=== PATIENT | female | born 1935 | race Caucasian/White ===

== ENCOUNTER 2018-01-18 07:50 | Inpatient (IN) | payer MEDICARE, BC ==
[2018-01-18] MEDS ORDERED: ALBUTEROL SULFATE/IPRATROPIUM 3 ML NEBU IH ONE ×2 (08:27→08:28)
[2018-01-18] MEDS ORDERED: METHYLPREDNISOLONE SOD SUCC/PF 125 MG/2 ML VIAL IV ONE (08:29)
[2018-01-18] MEDS ORDERED: METHYLPREDNISOLONE SOD SUCC/PF 125 MG/2 ML VIAL ONE (08:39)
[2018-01-18 08:49] LABS: Hematocrit 24.2 % (37.0-47.0); Hemoglobin 8.5 gm/dL (12.5-16.0); Mean Cell Volume 85.5 fl (78-100); Mean Corpuscular Hgb Conc 35.1 g/dl (32-36); Mean Platelet Volume 8.5 fl (6.0-9.5); Neutrophil # 6.7 K/mm3 (1.3-6.0); Platelet Count 185 K/mm3 (150-450); Red Blood Count 2.83 M/mm3 (4.2-5.4); Red Cell Distribution Width 14.3 % (11.5-14.0); White Blood Count 7.8 K/mm3 (4.0-10.5)
[2018-01-18 09:10] LABS: Troponin I Less than 0.017 ng/ml (0.00-0.10)
[2018-01-18 09:12] LABS: ALT 17 U/L (19-67); AST 21 U/L (0-48); Alkaline Phosphatase * 54 U/L (50-170); Anion Gap 17.1 mmol/L (6.8-13.8); BNP * 6548 pg/mL (5-550); BUN/Creatinine Ratio 12.1 (9.0-21.6); Bilirubin, Total 0.4 mg/dL (0.0-1.1); Blood Urea Nitrogen 49 mg/dL (3-23); Ca. Corrected For Albumin 9.4 mg/dL (8.4-10.2); Calcium * 8.9 mg/dL (7.9-10.9); Carbon Dioxide 25.5 mmol/L (24-32.6); Chloride 84 mmol/L (97-106); Glucose * 175 mg/dL (70-110); Potassium 4.6 mmol/L (3.4-4.6); Sodium 122 mmol/L (132-142); Total Protein 6.9 gm/dL (6.2-8.2)
--- NOTE | 2018-01-18 09:16 | ERNOTE ---
Date of Service: 01/18/18 Time Seen by Provider: 01/18/18 08:26 Stated Complaint: PANIC ATTACK Presenting Symptoms:: cough, other - wheezing Immunizations: IMMUNIZATION HX Immunizations Up to Date Yes History of Influenza Vaccine Yes Hx Pneumococcal Vaccination Yes Allergies/Adverse Reactions: Allergies carvedilol [From Coreg] Allergy (Intermediate, Verified 08/01/13 09:54) wheezing codeine [Codeine] Allergy (Intermediate, Verified 08/01/13 09:54) SOB oxycodone HCl [From Percocet] Allergy (Intermediate, Verified 08/01/13 09:54) severe nausea/vomiting, heart palpitations GARTH Inhibitors [Garth Inhibitors] Allergy (Mild, Verified 08/01/13 09:54) cough Iodinated Contrast- Oral and IV Dye [Iodinated Contrast Media - IV Dye] Allergy (Verified 12/07/15 11:04) morphine Adverse Reaction (Severe, Verified 08/01/13 09:54) Shortness of Breath also has nausea metformin Adverse Reaction (Mild, Verified 08/01/13 09:54) abdominal pain and cramping Home Medications: HOME MEDICATIONS Simvastatin 20 mg PO HS 09/14/12 [Last Taken Unknown] Verapamil HCl [Verapamil ER] 240 mg PO BID 09/14/12 [Last Taken Unknown] Aspirin [Aspirin Enteric Coated] 81 mg PO DAILY 05/05/13 [Last Taken Unknown] Calcium Carbonate [Calcium] 667 mg PO DAILY 05/05/13 [Last Taken Unknown] Cholecalciferol (Vitamin D3) [Vitamin D] 1,000 unit PO DAILY 05/05/13 [Last Taken Unknown] Insulin Glargine,Hum.rec.anlog [Lantus] 40 units SC DAILY 05/05/13 [Last Taken Unknown] Acetaminophen [Tylenol] 650 mg PO Q4H PRN 07/27/13 [Last Taken Unknown] Cyanocobalamin [Vitamin B-12] 1,000 mcg PO DAILY 07/27/13 [Last Taken Unknown] Famotidine [Pepcid AC] 20 mg PO HS 01/18/18 [Last Taken Unknown] Ferrous Sulfate [Iron] 325 mg PO TID 01/18/18 [Last Taken Unknown] Isosorbide Mononitrate [Imdur] 30 mg PO DAILY 01/18/18 [Last Taken Unknown] Levothyroxine Sodium [Synthroid] 175 mcg PO DAILY 01/18/18 [Last Taken Unknown] Meclizine HCl [Bonine] 25 mg PO DAILY 01/18/18 [Last Taken Unknown] Promethazine HCl 12.5 mg PO DAILY 01/18/18 [Last Taken Unknown] Sodium Bicarbonate 650 mg PO DAILY 01/18/18 [Last Taken Unknown] - History of Present Ilness Narrative: patient has had cough and congestion for one week albuteral not heling Timing: constant, getting worse Severity: moderate Frequency/Possible Cause: Reports: frequent episodes Modifying Factors - Improves: Reports: rest Review of Systems - Review of Systems Constitutional: Present: See HPI EYE: Present: no symptoms reported ENT: Present: no symptoms reported Respiratory: Present: See HPI, shortness of breath, cough Cardiology: Present: See HPI, edema Gastrointestinal/Abdominal: Present: no symptoms reported Genitourinary: Present: no symptoms reported Musculoskeletal: Present: no symptoms reported Skin: Present: no symptoms reported Neurological: Present: no symptoms reported Endocrine: Present: no symptoms reported Hematologic/Lymphatic: Present: no symptoms reported Psych: Present: no symptoms reported All Other Systems: All systems neg except as marked - Narrative Narrative: patient has been sob one for one week - Patient's Past Medical History Patient History - Medical: Anxiety, Depression, Renal Disease, Renal Failure Patient History - Cardiac/Respiratory: COPD Patient History - Cancer: No Hx of Cancer Patient History - Surgical Procedures: No surgical history Patient History - Other: None LMP (females 10-50): Menopausal - Family History Family History:: no untoward family reactions to anesthesia, no familial bleeding tendencies, no family history of clotting disorders, no family history of premature - Social History Living Situations: home Abuse History: No History of abuse Psych History: Hx of Anxiety, Hx of Depression Does anyone smoke in the home?: No Smoking Status: Never smoker Have you smoked in the past 12 months: No Do you dip or chew tobacco: No Alcohol Use: sober Drug Use: none - Immunizations Immunizations Up to Date: Yes Hx Pneumococcal Vaccination: Yes History of Influenza Vaccine: Yes Physical Exam - Physical Exam General Appearance: Present: moderate distress Head Exam: Present: normal inspection, no evidence of injury Eye Exam: Normal inspection: bilateral, PERRL: bilateral, EOMI: bilateral Ears, Nose, Throat: Present: normal ENT inspection Neck: Present: normal inspection, nontender Respiratory: Present: respiratory distress, decreased breath sounds, expiration (prolonged), crackles, rales, rhonchi Cardiovascular/Chest: Present: regular rate, rhythm, no murmur, normal peripheral pulses Peripheral Pulses: N=norm/S=strong/W=weak/B=bound/A=absent: Carotid (R): Normal , Carotid (L): Normal, Radial (R): Normal, Radial (L): Normal, Femoral (R): Normal, Femoral (L): Normal, Dorsalis-pedis (R): Normal, Dorsalis-pedis (L): Normal Gastrointestinal/Abdominal: Present: normal bowel sounds, nontender, nondistended, soft, no organomegaly Back Exam: Present: normal inspection, normal range of motion, no CVA tenderness , no vertebral tenderness Extremity Exam: Present: normal inspection, non-tender, normal range of motion, no edema Neurological Exam: Present: alert, oriented, normal mood/affect, no motor/ sensory deficits Skin Exam: Present: normal color, warm/dry Lymphatic Exam: Present: no adenopathy ED Progress - Date and Time Seen: Date and Time: 01/18/18 10:41 unchanged, case discussed with dr aniket bernstein, to be admitted to observation, pulmonary edema - Results and Orders Patient's Lab Results:: I have reviewed the patient's lab results. - Vital Signs Patient's Vital Signs:: I have reviewed the patient's vital signs. Vital Signs: Vital Signs 01/18/18 01/18/18 01/18/18 08:04 08:09 08:30 Temperature 36.6 C 36.6 C Pulse Rate 92 93 90 Respiratory 22 H 24 H 24 H Rate Blood Pressure 182/68 182/68 O2 Sat by Pulse 93 95 94 Oximetry 01/18/18 08:39 Temperature Pulse Rate 92 Respiratory 26 H Rate Blood Pressure O2 Sat by Pulse 94 Oximetry - EKG EKG: NSR EKG read: Interp. by me - Progress/Reassessment Chief Complaint: Upper Respiratory Symptoms Progress:: Unchanged - Transfer of Care Expected Disposition: Admit Plan - Plan Plan: to admit to observation Departure Clinical Impression: Pulmonary edema - Departure Disposition: Short Term Hospital Inpatient Condition: Serious Referrals: Jordan Orosco MD [Primary Care Provider] -
[2018-01-18] MEDS ORDERED: FUROSEMIDE 10 MG/ML VIAL IV ONE ×2 (10:30→13:39)
[2018-01-18] MEDS ORDERED: FUROSEMIDE 10 MG/ML VIAL ONE (10:33)
--- NOTE | 2018-01-18 12:54 | HP ---
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 2 weeks prior to admission patient started having some cough and was seen by ear nose and throat that she was also having right ear discharge she was treated for acute sinusitis and an ear infection with heavy antibiotics as per son. The patient continued to be short of breath and noticed that her nebulizer treatment has not been helping her and so she was brought to the emergency room. Her BNP was elevated. Her white blood cell count was normal although she had she has a left shift. Her Na was 122. Her chest x-ray showed interstitial edema and possible pneumonia as well. She was then admitted for further treatment. - Patient's Past Medical History Patient History - Medical: Anxiety, Depression, Renal Disease, Renal Failure Patient History - Cardiac/Respiratory: COPD Patient History - Cancer: No Hx of Cancer Patient History - Surgical Procedures: Cholecystectomy Patient History - Other: None LMP (females 10-50): Menopausal - Family History Family History:: no untoward family reactions to anesthesia, no familial bleeding tendencies, no family history of clotting disorders, no family history of premature - Family History Father Family History - Medical: , No pertinent hx Family History - Cardiac/Respiratory: No pertinent hx Family History - Cancer: Lung Mother Family History - Medical: Family History - Cardiac/Respiratory: No pertinent hx Family History - Cancer: Cervical - Social History Living Situations: home Abuse History: No History of abuse Psych History: Hx of Anxiety, Hx of Depression Does anyone smoke in the home?: No Smoking Status: Never smoker Have you smoked in the past 12 months: No Do you dip or chew tobacco: No Alcohol Use: none Drug Use: none - Immunizations Immunizations Up to Date: Yes Hx Pneumococcal Vaccination: Yes History of Influenza Vaccine: Yes Review Of Systems (GEN) - Review of Systems Generalized/Overall Review: Present: Weakness. Absent: Chills, Fever Respiratory: Present: Cough, Shortness of Breath, Orthopnea Cardiac: Present: Edema. Absent: Chest Pain, Palpitations Abdominal: Absent: Nausea, Vomiting Genitourinary: Absent: Urgency, Frequency Musculoskeletal: Present: Joint Pain Immunizations: IMMUNIZATION HX Immunizations Up to Date Yes History of Influenza Vaccine Yes Hx Pneumococcal Vaccination Yes Allergies/Adverse Reactions: Allergies Allergy/AdvReac Type Severity Reaction Status Date / Time carvedilol [From Coreg] Allergy Intermediate wheezing Verified 01/18/18 14:51 codeine [Codeine] Allergy Intermediate SOB Verified 01/18/18 14:51 oxycodone HCl [From Percocet] Allergy Intermediate severe Verified 01/18/18 14: 51 nausea/vomiting, heart palpitations GARTH Inhibitors Allergy Mild cough Verified 01/18/18 14:51 [Garth Inhibitors] Iodinated Contrast- Oral and Allergy Verified 01/18/18 14:51 IV Dye [Iodinated Contrast Media - IV Dye] morphine AdvReac Severe Shortness Verified 01/18/18 14:51 of Breath metformin AdvReac Mild abdominal Verified 01/18/18 14:51 pain and cramping Home Medications: HOME MEDICATIONS Simvastatin 20 mg PO HS 09/14/12 [Last Taken Unknown] Verapamil HCl [Verapamil ER] 240 mg PO DAILY 09/14/12 [Last Taken Unknown] Aspirin [Aspirin Enteric Coated] 81 mg PO DAILY 05/05/13 [Last Taken Unknown] Cholecalciferol (Vitamin D3) [Vitamin D] 3,000 unit PO DAILY 05/05/13 [Last Taken Unknown] Acetaminophen [Tylenol] 650 mg PO Q4H PRN 07/27/13 [Last Taken Unknown] Cyanocobalamin [Vitamin B-12] 1,000 mcg PO DAILY 07/27/13 [Last Taken Unknown] Albuterol Sulfate [Proair Hfa] 1 - 2 puff IH Q4H PRN 01/18/18 [Last Taken Unknown] Calcium Acetate [Phoslo] 667 mg PO TID 01/18/18 [Last Taken Unknown] Famotidine [Pepcid AC] 20 mg PO HS 01/18/18 [Last Taken Unknown] Ferrous Sulfate [Iron] 325 mg PO TID 01/18/18 [Last Taken Unknown] Insulin Glargine,Hum.rec.anlog [Lantus Solostar] 40 unit SQ DAILY 01/18/18 [ Last Taken Unknown] Isosorbide Mononitrate [Imdur] 30 mg PO DAILY 01/18/18 [Last Taken Unknown] Levothyroxine Sodium [Synthroid] 175 mcg PO DAILY 01/18/18 [Last Taken Unknown] Meclizine HCl [Bonine] 25 mg PO TID PRN 01/18/18 [Last Taken Unknown] Promethazine HCl 12.5 mg PO Q4H PRN 01/18/18 [Last Taken Unknown] Sodium Bicarbonate 650 mg PO DAILY 01/18/18 [Last Taken Unknown] Verapamil HCl [Verapamil ER] 120 mg PO BID 01/18/18 [Last Taken Unknown] Exam - Exam Vital Signs: Vital Signs - Last Taken Temp 36.6 C 01/18/18 11:38 Pulse 94 01/18/18 11:38 Resp 28 H 01/18/18 11:38 BP 200/72 01/18/18 11:38 Pulse Ox 94 01/18/18 11:38 Constitutional: Present: Alert, Oriented x3, Cooperative ENT Exam: Present: hearing grossly normal Eye Exam: bilateral eye: normal inspection, PERRL, EOMI Neck: Present: supple Respiratory: Present: decreased breath sounds, rales, wheezing Cardiovascular/Chest: Present: regular rate, rhythm, JVD Abdomen: Present: Normal bowel sounds, soft, nontender, nondistended Extremity: Present: no calf tenderness, lower extremity edema Diagnostic Studies: Laboratory Results WBC 7.8 K/mm3 (4.0-10.5) 01/18/18 08:40 RBC 2.83 M/mm3 (4.2-5.4) L 01/18/18 08:40 Hgb 8.5 gm/dL (12.5-16.0) L 01/18/18 08:40 Hct 24.2 % (37.0-47.0) L 01/18/18 08:40 MCV 85.5 fl (78-100) 01/18/18 08:40 MCH 30.0 pg (27-31) 01/18/18 08:40 MCHC 35.1 g/dl (32-36) 01/18/18 08:40 RDW 14.3 % (11.5-14.0) H 01/18/18 08:40 Plt Count 185 K/mm3 (150-450) 01/18/18 08:40 MPV 8.5 fl (6.0-9.5) 01/18/18 08:40 Immature Gran % (Auto) 0.50 % (0.001-0.429) H 01/18/18 08:40 Immature Gran # (Auto) 0.04 K/mm3 (0.000-0.0310) H 01/18/18 08:40 Neutrophils % 86.0 % (42-75.0) H 01/18/18 08:40 Lymphocytes % 6.0 % (20-51) L 01/18/18 08:40 Monocytes % 6.9 % (0.0-9) 01/18/18 08:40 Eosinophils % 0.5 % (0.0-3.0) 01/18/18 08:40 Basophils % 0.1 % (0.0-1.0) 01/18/18 08:40 Nucleated RBC % 0.0 k/mm3 (0-1) 01/18/18 08:40 Neutrophils # 6.7 K/mm3 (1.3-6.0) H 01/18/18 08:40 Lymphocytes # 0.47 k/mm3 (1.5-3.5) L 01/18/18 08:40 Monocytes # 0.5 k/mm3 (0.0-1.0) 01/18/18 08:40 Eosinophils # 0.0 k/mm3 (0.0-0.7) 01/18/18 08:40 Absolute Basophils 0.0 k/mm3 (0.0-0.1) 01/18/18 08:40 pCO2 30.4 mmHg (32.0-45.0) L 01/18/18 08:55 pO2 68.0 mmHg (83.0-108.0) L 01/18/18 08:55 HCO3 20.1 mmol/L (21.0-28.0) L 01/18/18 08:55 Total CO2 21.0 mmol/L (19.0-24.0) 01/18/18 08:55 Base Excess -3.5 mmol/L (-2.0-3.0) L 01/18/18 08:55 ABG pH 7.44 (7.35-7.45) 03 08:55 ABG O2 Sat (Measured) 94.4 % (94.0-98.0) 01/18/18 08:55 Sodium 122 mmol/L (132-142) L 01/18/18 08:40 Plasma Sodium 123 mmol/L (130-142) L 01/18/18 08:40 Potassium 4.6 mmol/L (3.4-4.6) D 01/18/18 08:40 Chloride 84 mmol/L (97-106) L 01/18/18 08:40 Carbon Dioxide 25.5 mmol/L (24-32.6) 01/18/18 08:40 Anion Gap 17.1 mmol/L (6.8-13.8) H 01/18/18 08:40 BUN 49 mg/dL (3-23) H 01/18/18 08:40 Creatinine 4.04 mg/dL (0.4-1.4) H 01/18/18 08:40 Est GFR (Non-Af Amer) 11 mL/min (60-130) L 01/18/18 08:40 BUN/Creatinine Ratio 12.1 (9.0-21.6) 01/18/18 08:40 Random Glucose 175 mg/dL (70-110) H 01/18/18 08:40 Lactic Acid, Venous 1.1 mmol/L (0.4-1.9) 01/18/18 08:40 Calcium 8.9 mg/dL (7.9-10.9) 01/18/18 08:40 Calcium Adj for Albumin 9.4 mg/dL (8.4-10.2) 01/18/18 08:40 Total Bilirubin 0.4 mg/dL (0.0-1.1) 01/18/18 08:40 AST 21 U/L (0-48) 01/18/18 08:40 ALT 17 U/L (19-67) L 01/18/18 08:40 Alkaline Phosphatase 54 U/L (50-170) 01/18/18 08:40 Troponin I Less than 0.017 ng/ml (0.00-0.10) 01/18/18 08:40 B-Natriuretic Peptide 6548 pg/mL (5-550) H 01/18/18 08:40 Total Protein 6.9 gm/dL (6.2-8.2) 01/18/18 08:40 Albumin 3.0 gm/dl (3.4-5.0) L 01/18/18 08:40 Assessment/Plan - Assessment/Plan (1) CHF (congestive heart failure) Assessment: likely combined systolic/diastolic. will get an Echo. will continue with diuresis. if does not improve , will need transfer for dialysis. Problem: Acute Qualifiers: Congestive heart failure type: combined Congestive heart failure chronicity : acute on chronic Qualified Code(s): I50.43 - Acute on chronic combined systolic (congestive) and diastolic (congestive) heart failure (2) Hyponatremia Assessment: likely due to hypervolemic hypotonic hyponatremia due to CHF Problem: Acute (3) Dyspnea Problem: Acute (4) Acute asthmatic bronchitis Assessment: will start her on Iv antibiotics, breathing treatment and IV solumedrol. Problem: Acute (5) CRF (chronic renal failure) Assessment: Stage V. discussed case with Nephrology- give her 120-240 mg IV Lasix BID. Problem: Chronic Qualifiers: Chronic kidney disease stage: stage 5 Qualified Code(s): N18.5 - Chronic kidney disease, stage 5 (6) Hypertension Problem: Acute (7) Diabetes mellitus type 2 in obese Problem: Acute
[2018-01-18] MEDS ORDERED: AZITHROMYCIN 250 MG TABLET PO ONE (12:55)
[2018-01-18] MEDS ORDERED: ACETAMINOPHEN 325 MG TABLET PO PRN (12:57)
[2018-01-18] MEDS ORDERED: METHYLPREDNISOLONE SOD SUCC/PF 40 MG/ML VIAL IV SCH (13:00)
[2018-01-18] MEDS: METHYLPREDNISOLONE SOD SUCC 40 MG in WATER FOR INJ.,BACTERIOSTATIC 0 ML IV SCH ×2 (13:56→20:21)
[2018-01-18] MEDS: FERROUS SULFATE 325 MG TABLET PO SCH ×2 (13:56→17:08)
[2018-01-18] MEDS ORDERED: cefTRIAXone SODIUM 1,000 MG in DEXTROSE 5 % IN WATER 50 ML IV SCH ×2 (14:00)
[2018-01-18] MEDS: CALCIUM ACETATE 667 MG CAPSULE PO SCH ×2 (14:17→17:07)
[2018-01-18] MEDS ORDERED: FUROSEMIDE 10 MG/ML VIAL IV SCH (16:00)
[2018-01-18] MEDS: FUROSEMIDE 100 MG, FUROSEMIDE 20 MG IV SCH ×4 (16:06→20:22)
[2018-01-18] MEDS: HEPARIN SODIUM,PORCINE 5,000 UNITS/ML VIAL SC SCH (17:07)
[2018-01-18 17:44] LABS: Urine Appearance Slightly Cloudy (CLEAR); Urine Bilirubin Negative (NEGATIVE); Urine Blood 250 /ul (NEGATIVE); Urine Color Pale Yellow; Urine Ketone Negative (NEGATIVE); Urine Specific Gravity 1.015 SP.GR. (1.005-1.010); Urine pH 6.5 pH (5.0-7.0)
[2018-01-18 17:45] LABS: Urine Nitrite Negative (NEGATIVE); Urine Protein >=300 mg/dL (NEGATIVE); Urine Urobilinogen Normal (NORMAL)
[2018-01-18 17:52] LABS: Urine Amorphous Sediment Few - 1+ (NONE-FEW); Urine Bacteria TRACE; Urine WBC 0-5 /hpf (0-5)
[2018-01-18] MEDS: VERAPAMIL HCL 240 MG TABLET.SA PO SCH (20:22)
[2018-01-18] MEDS ORDERED: FAMOTIDINE 20 MG TABLET PO SCH (21:00)
[2018-01-18] MEDS ORDERED: INSULIN LISPRO 100 UNITS/ML VIAL SC ONE (21:45)
[2018-01-18] MEDS: LORazepam 0.5 MG TABLET PO PRN (21:59)
[2018-01-18] MEDS: ALBUTEROL SULFATE 200 PUFF INHALER IH PRN (22:00)
[2018-01-18] MEDS ORDERED: POTASSIUM CHLORIDE 10 MEQ TABLET.SA PO SCH (23:45)
[2018-01-19] MEDS: METHYLPREDNISOLONE SOD SUCC 40 MG in WATER FOR INJ.,BACTERIOSTATIC 0 ML IV SCH ×2 (02:20→07:24)
[2018-01-19] MEDS: HEPARIN SODIUM,PORCINE 5,000 UNITS/ML VIAL SC SCH (04:05)
[2018-01-19] MEDS: ALBUTEROL SULFATE 200 PUFF INHALER IH PRN ×2 (04:06→09:55)
[2018-01-19] MEDS: LORazepam 0.5 MG TABLET PO PRN (04:06)
[2018-01-19 05:58] LABS: Mean Cell Volume 83.9 fl (78-100); Mean Corpuscular Hemoglobin 29.3 pg (27-31); Mean Corpuscular Hgb Conc 34.9 g/dl (32-36); Mean Platelet Volume 9.5 fl (6.0-9.5); Neutrophil # 2.9 K/mm3 (1.3-6.0); Neutrophil % 86.6 % (42-75.0); Platelet Count 185 K/mm3 (150-450); Red Blood Count 2.73 M/mm3 (4.2-5.4); Red Cell Distribution Width 13.9 % (11.5-14.0); White Blood Count 3.4 K/mm3 (4.0-10.5)
[2018-01-19 06:08] LABS: Hematocrit 22.9 % (37.0-47.0)
[2018-01-19 06:19] LABS: Anion Gap 17.2 mmol/L (6.8-13.8); BUN/Creatinine Ratio 14.3 (9.0-21.6); Calcium * 8.5 mg/dL (7.9-10.9); Carbon Dioxide 22.3 mmol/L (24-32.6); Estimated Creat Clear 7.5; Potassium 5.5 mmol/L (3.4-4.6)
--- NOTE | 2018-01-19 08:39 | PN ---
Progess Note - Interim Date: 01/19/18 Time: 08:38 Narrative: 01/19/18 08:38 Patient is feeling better in terms of her SOB although she is visibly SOB as she is not able to finish her sentences without stopping every so foten. her Na is down to 116 and Cr is up to 4.3, k [place] 5.5, [place] [address] [place] 6000 . She is AAO x3, no tremors/fasciculations, crampings/N/V- asymptomatic. Will fluid restrict her ot 750 ml/hour. Will give her 3% NaCl and monitor her Na q 2 hours. Will get in touch with Dr. Becerril for possible transfer to [facility] for dialysis. 01/19/18 08:59 I was able to get in touch with her orthophotography technician and agrees with HD. If we are transferring her to [facility] for dialysis, will hold off her hypertonic saline per nephrology if she is asymptomatic..
--- NOTE | 2018-01-19 08:42 | PN ---
Progess Note - Interim Date: 01/19/18 Time: 08:36 Narrative: 01/19/18 08:36 Interim progress note on Tangela Cowart. I was called twice this morning early with panic values 1 with a sodium of 116 and 1 with a hemoglobin drop to 8 g. She is a patient of . I have spoken with him this morning and gave him game technician report on her condition. I went to see her earlier this morning and found her sitting up in a chair wearing oxygen but comfortable. She says she feels quite a bit better than she did. She is a stage V chronic hemodialysis patient with a creatinine of 10. She was pulling a large amounts of protein in her urine. She has been receiving 120 mg of IV Lasix twice a day and has diuresed without. Unfortunately she is also dropped her sodium considerably. Venous and doesn't seem to be affecting her mental status point. There has been no reported seizures. I have recommended hypertonic saline solution to be administered. Dr. Orosco will manage that. Elliott Ivan D.O.
[2018-01-19] MEDS ORDERED: SODIUM CHLORIDE 3 % 500 ML IV SCH (08:45)
[2018-01-19] MEDS ORDERED: CHOLECALCIFEROL 1,000 UNIT CAPSULE PO SCH (09:00)
[2018-01-19] MEDS ORDERED: LEVOTHYROXINE SODIUM 175 MCG TABLET PO SCH (09:00)
[2018-01-19] MEDS ORDERED: SODIUM BICARBONATE 650 MG TABLET PO SCH (09:00)
[2018-01-19] MEDS ORDERED: ASPIRIN 81 MG TABLET.DR PO SCH (09:00)
[2018-01-19] MEDS ORDERED: POTASSIUM CHLORIDE 20 MEQ TABLET.SA PO SCH (09:00)
[2018-01-19] MEDS ORDERED: ISOSORBIDE MONONITRATE 30 MG TAB.SR.24H PO SCH (09:00)
[2018-01-19] MEDS ORDERED: INSULIN GLARGINE,HUM.REC.ANLOG 100 UNITS/ML VIAL SC SCH (09:00)
[2018-01-19] MEDS ORDERED: CYANOCOBALAMIN 1,000 MCG TABLET PO SCH (09:00)
--- NOTE | 2018-01-19 09:07 | DS ---
Transfer Discharge Summary - Diagnosis(s)/Problems (1) CHF (congestive heart failure) Narrative: acute exacerbation of CHF , diastolic Problem: Acute (2) Hyponatremia Narrative: likely hypervolemic, hypotonic hyponatremia due to CHF Problem: Acute (3) Dyspnea Narrative: due to CHF and Acute bronchitis Problem: Acute (4) Acute asthmatic bronchitis Problem: Acute (5) CRF (chronic renal failure) Narrative: Stage V Problem: Chronic (6) Hypertension Problem: Acute (7) Diabetes mellitus type 2 in obese Problem: Acute - Course Description of Stay: Tangela Cowart, is 82-year-old white female with past medical history of COPD, 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 2 weeks prior to admission patient started having some cough, wheezing and was seen by ENT as she was also having right ear discharge and she was treated for acute sinusitis and an ear infection with heavy antibiotics as per son. The patient continued to be short of breath, wheezy and noticed that her nebulizer treatment has not been helping her and so she was brought to the emergency room. Her BNP was elevated. Her white blood cell count was normal although she had a left shift. Her Na was 122. Her chest x- ray showed interstitial edema and nodular density possible pneumonia vs malignancy. She was started on IV solumedrol, IV rocephin and Azithromycin, with breathing treatments for her Acute asthmatic bronchitis. It was felt that her hyponatremia was due to hypotinic , hypervolemic hyponatremia and her registration officer agreed. She was started on IV lasix 120 mg IV BID, fluid restriction. She put out 1 L overnight but her Na is down to 116, Bun/Cr up to 62/4.3. She is clinically asymptomatic of her hyponatremia but she is still visibly SOB. Discussed with Dr. Becerril and he agrees with dialysis for the patient. We will transfer patient to [facility] for HD and availability of Nephrology and cardiology especialties. I was able to talk to dr. Kenny, hospitaist , in [facility] and he is accepting the transfer. Procedures Performed: none - Results and Findings Results and Findings: Laboratory Results - last 24 hr 01/18/18 01/19/18 01/19/18 17:15 05:37 05:37 WBC 3.4 L D RBC 2.73 L Hgb 8.0 L Hct 22.9 L* MCV 83.9 MCH 29.3 MCHC 34.9 RDW 13.9 Plt Count 185 MPV 9.5 Immature Gran % (Auto) 1.50 H Immature Gran # (Auto) 0.05 H Neutrophils % 86.6 H Lymphocytes % 9.2 L Monocytes % 2.4 Eosinophils % 0.3 Basophils % 0.0 Nucleated RBC % 0.0 Neutrophils # 2.9 Lymphocytes # 0.31 L Monocytes # 0.1 Eosinophils # 0.0 Absolute Basophils 0.0 Sodium 116 L* Plasma Sodium 119 L* Potassium 5.5 H Chloride 82 L Carbon Dioxide 22.3 L Anion Gap 17.2 H BUN 62 H Creatinine 4.35 H Est GFR (Non-Af Amer) 10 L BUN/Creatinine Ratio 14.3 Random Glucose 273 H D Calcium 8.5 B-Natriuretic Peptide 11797 H Urine Color Pale yellow Urine Appearance Slightly cloudy Urine pH 6.5 Ur Specific [place] 1.015 Urine Protein >=300 H Urine Glucose (UA) 250 H Urine Ketones Negative Urine Blood 250 H Urine Nitrate Negative Urine Bilirubin Negative Prot Sulfosalicylic Acd 2+ H Urine Urobilinogen Normal Ur Leukocyte Esterase Negative Urine RBC 5-10 H Urine WBC 0-5 Ur Epithelial Cells 0-5 Amorphous Sediment Few - 1+ Urine Bacteria Trace - Medications Medications: Active Medications Albuterol Sulfate (Ventolin Hfa) 1 - 2 puff IH Q4H PRN PRN Reason: shortness of breath Stop: 02/17/18 21:35 Last Admin: 01/19/18 04:06 Dose: 2 puff Calcium Acetate (Phoslo) 667 mg PO TID [facility] Stop: 02/17/18 14:01 Last Admin: 01/18/18 17:07 Dose: 667 mg Famotidine (Pepcid) 20 mg PO HS [place] Stop: 02/17/18 21:01 Last Admin: 01/18/18 20:23 Dose: 20 mg Ferrous Sulfate (Ferrous Sulfate) 325 mg PO TID [place] Stop: 02/17/18 13:01 Last Admin: 01/18/18 17:08 Dose: 325 mg Furosemide 100 mg/ Furosemide (20 mg) 120 mg IV BID [place] Stop: 02/17/18 16:01 Last Admin: 01/18/18 20:22 Dose: 120 mg Heparin Sodium (Porcine) (Heparin Sodium) 5,000 units SC Q12H [facility] Stop: 02/17/18 17:01 Last Admin: 01/19/18 04:05 Dose: 5,000 units Methylprednisolone Sodium (Succinate 40 mg/ Sterile Water) 0.32 mls @ 19.2 mls/ hr IV Q6H [place] Stop: 02/17/18 14:01 Last Admin: 01/19/18 07:24 Dose: 19.2 mls/hr Ceftriaxone Sodium 1,000 mg/ (Dextrose/Water) 50 mls @ 100 mls/hr IV Q24H [place] PRN Reason: Protocol Stop: 02/17/18 13:01 Last Infusion: 01/18/18 14:52 Dose: Infused Lorazepam (Ativan) 0.5 mg PO Q6H PRN PRN Reason: Anxiety Stop: 02/17/18 21:37 Last Admin: 01/19/18 04:06 Dose: 0.5 mg Verapamil HCl (Calan Sr) 240 mg PO BID [facility] Stop: 02/17/18 21:01 Last Admin: 01/18/18 20:22 Dose: 240 mg Discontinued Medications Albuterol/Ipratropium (Duoneb 2.5-0.5mg/3ml Soln) 3 ml IH ONCE ONE Stop: 01/18/18 08:28 Last Admin: 01/18/18 08:30 Dose: 3 ml Azithromycin (Zithromax) 500 mg PO ONCE ONE PRN Reason: Protocol Stop: 01/18/18 12:56 Last Admin: 01/18/18 13:56 Dose: 500 mg Furosemide (Lasix) 60 mg IV ONCE ONE Stop: 01/18/18 10:31 Last Admin: 01/18/18 11:02 Dose: 60 mg Furosemide (Lasix) 60 mg IV ONCE ONE Stop: 01/18/18 13:40 Last Admin: 01/18/18 14:06 Dose: 60 mg Ceftriaxone Sodium 1,000 mg/ (Dextrose/Water) 100 mls @ 200 mls/hr IV Q24H [place] PRN Reason: Protocol Stop: 02/17/18 13:01 Last Admin: 01/18/18 14:12 Dose: Not Given Insulin Human Lispro (Humalog) 10 units SC ONCE ONE Stop: 01/18/18 21:46 Last Admin: 01/18/18 22:02 Dose: 10 units Methylprednisolone Sodium Succinate (Solu-Medrol (Pf)) 125 mg IV ONCE ONE Stop: 01/18/18 08:30 Last Admin: 01/18/18 08:40 Dose: 125 mg Potassium Chloride (Klor-Con 10) 20 meq PO BIDWM [facility] Stop: 02/17/18 23:46 Last Admin: 01/19/18 00:08 Dose: 20 meq - Disposition Disposition: Short Term Hospital Inpatient Condition: Serious
[2018-01-19] MEDS: FUROSEMIDE 100 MG, FUROSEMIDE 20 MG IV SCH ×2 (09:54)
[2018-01-19] MEDS: FERROUS SULFATE 325 MG TABLET PO SCH (10:02)
[2018-01-19] MEDS: CALCIUM ACETATE 667 MG CAPSULE PO SCH (10:03)
[2018-01-19] MEDS: VERAPAMIL HCL 240 MG TABLET.SA PO SCH (10:05)
[2018-01-19] MEDS: INSULIN LISPRO 100 UNITS/ML VIAL SC SCH ×2 (10:09→12:37)
[2018-01-19 11:04] VITALS: BP 181/75
--- NOTE | 2018-01-21 09:05 | ECHO ---
This report is available in the EMR
== END 2018-01-19 12:30 | disposition short-term general hospital (02) | DRG 292 ==
LOC: ER 07:50 → MS 10:41 → OBSVTOIN 13:04
PROVIDERS: ADMIT Internal Medicine; ATTEND Internal Medicine
PROC: 4A033R1 Measurement of Arterial Saturation, Peripheral, Percutaneous Approach (ICD-10-PCS; principal; 2018-01-18)
PROC: B246ZZZ Ultrasonography of Right and Left Heart (ICD-10-PCS; 2018-01-19)
DX: E87.1 Hypo-osmolality and hyponatremia; J45.901 Unspecified asthma with (acute) exacerbation; N18.5 Chronic kidney disease, stage 5; R06.00 Dyspnea, unspecified; Z79.82 Long term (current) use of aspirin; I13.2 Hypertensive heart and chronic kidney disease with heart failure and with stage 5 chronic kidney disease, or end stage renal disease; Z88.8 Allergy status to other drugs, medicaments and biological substances; I50.31 Acute diastolic (congestive) heart failure; E03.9 Hypothyroidism, unspecified; Z88.6 Allergy status to analgesic agent; Z79.4 Long term (current) use of insulin; E11.22 Type 2 diabetes mellitus with diabetic chronic kidney disease